=== PATIENT | female | born 1980 | race Two or more races ===

== ENCOUNTER 2025-01-08 18:56 | Emergency (ER) | payer OTHER ==
[~2025-01-08] VITALS: Ht 162.6 cm; Wt 61.2 kg
[2025-01-08 19:46] LABS: BASOPHILS % (AUTO) 0.4 % (0.0-2.0); EOSINOPHILS # (AUTO) 0.1 K/uL (0.0-0.7); EOSINOPHILS % (AUTO) 0.7 % (0.0-6.0); HEMATOCRIT 43 % (33-45); HEMOGLOBIN 14.7 g/dL (11.5-14.8); LYMPHOCYTES # (AUTO) 1.2 K/uL (0.8-4.8); LYMPHOCYTES % (AUTO) 11.7 % (20.0-44.0); MEAN CORPUSCULAR HEMOGLOBIN 30 PG (26.0-33.0); MEAN CORPUSCULAR HGB CONC 34 g/dl (31.0-36.0); MEAN CORPUSCULAR VOLUME 87 fL (82-100); MONOCYTES # (AUTO) 0.5 K/uL (0.1-1.30); MONOCYTES % (AUTO) 5.1 % (2.0-12.0); NEUTROPHILS # (AUTO) 8.7 K/uL (1.8-8.9); NEUTROPHILS % (AUTO) 82.1 % (43.0-81.0); PLATELET COUNT (AUTO) 238 K/uL (150-450); RED BLOOD CELL COUNT(AUTO) 4.94 MIL/uL (4.0-5.2); RED CELL DISTRIBUTION WIDTH 13.6 % (11.5-15.0); WHITE BLOOD COUNT (AUTO) 10.6 K/uL (4.3-11.0)
[2025-01-08 20:06] LABS: CALCIUM, SERUM 9.5 mg/dL (8.5-10.1); CARBON DIOXIDE 20 mmol/L (21-32); CHLORIDE 103 mmol/L (98-107); CREATININE 0.9 mg/dL (0.6-1.3); GLUCOSE 128 mg/dL (74-106); POTASSIUM 3.2 mmol/L (3.5-5.1); SODIUM SERUM 135 mmol/L (136-145); UREA NITROGEN, BLOOD 12 mg/dL (7-18)
[2025-01-08] MEDS ORDERED: POTASSIUM CHLORIDE 20 MEQ TAB.PRT.SR PO ONE (20:29)
[2025-01-08] MEDS: POTASSIUM CHLORIDE 20 MEQ TAB.PRT.SR PO ONE (20:33)
[2025-01-08 21:33] LABS: ALBUMIN 4.3 g/dL (3.4-5.0); BILIRUBIN,DIRECT 0.1 mg/dL (0.0-0.2); BILIRUBIN,TOTAL 0.2 mg/dL (0.2-1.0); TOTAL PROTEIN, SERUM 8.9 g/dL (6.4-8.2)
[2025-01-08 22:01] VITALS: BP 118/80; TEMP 98; O2SAT 99
[2025-01-09 22:27] LABS: THYROID STIMULATING HORMONE 1.45 uIU/mL (0.358-3.74)
== END 2025-01-08 22:01 | disposition home or self-care (01) ==
LOC: ER 19:00
DX: R07.9 Chest pain, unspecified (principal); M54.9 Dorsalgia, unspecified; R00.2 Palpitations; R11.0 Nausea; R10.9 Unspecified abdominal pain; E03.9 Hypothyroidism, unspecified; R10.2 Pelvic and perineal pain; Z88.1 Allergy status to other antibiotic agents
CPT/HCPCS: 36415; 71045-TC; 80048-TC; 80076-TC; 83690-TC; 84443-TC; 84484-TC; 84702-TC; 85025-TC